=== PATIENT | male | born 1995 | race Caucasian/White ===

== ENCOUNTER 2021-02-18 17:49 | Emergency (ER) | payer SELFPAY ==
[2021-02-18] VITALS (7 sets, daily range): BP systolic 119–152; BP diastolic 69–70; PULSE 74–98; RESP 16; O2SAT 98–100
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
[2021-02-18 19:01] LABS: Abs Immature Grans 0.03 10^3/uL (0.0-0.06); Absolute Basophil Count 0.04 10^3/uL (0.0-0.2); Absolute Eosinophil Count 0.17 10^3/uL (0.0-0.7); Absolute Lymphocyte Count 1.79 10^3/uL (1.2-3.4); Absolute Monocyte Count 0.93 10^3/uL (0.1-0.8); Basophils % 0.4; Eosinophils % 1.5; HCT 42.7 % (40.0-50.0); HGB 14.6 g/dL (13.5-17.5); Immature Grans % 0.3; MCH 29.8 pg (27.0-33.0); MCHC 34.2 % (32.0-36.0); MCV 87.1 fL (80-95); Monocytes % 8.3; Neutrophils % 73.5; Nucleated RBC 0 %; Platelet Count 196 10^3/uL (130-400); RDW 11.5 % (11.8-14.1); WBC 11.19 10^3/uL (4.4-10.8)
[2021-02-18 19:03] LABS: Absolute Neutrophil Count 8.22 10^3/uL (1.2-6.7)
[2021-02-18 19:10] LABS: ALT 31 U/L (16-63); AST 28 U/L (15-37); Albumin 4.5 g/dL (3.4-5.0); Alkaline Phosphatase 81 U/L (46-116); Anion Gap 9.4 mmol/L (3-11); BUN 21 mg/dL (7-18); Bilirubin, Total 0.3 mg/dL (0.2-1.0); CO2 27.6 mmol/L (21.0-32.0); CREATININE 0.9 mg/dL (0.70-1.30); Calcium 9.2 mg/dL (8.5-10.1); Chloride 104 mmol/L (98-107); Glucose 80 mg/dL (74-106); Potassium 4.1 mmol/L (3.5-5.1); Sodium 141 mmol/L (136-145); Total Protein 7.7 g/dL (6.4-8.2)
[2021-02-18] MEDS: Lactated Ringers 1,000 ML 1000 ML IV (19:29)
[2021-02-18] MEDS: Omnipaque 350 MG/ML 100 ML BTL IJ (19:33)
[2021-02-18] MEDS: HYDROmorphone 2 MG/ML VIAL 0.5 MG IVP (19:33)
[2021-02-18] MEDS: Normal Saline Flush 10 ML SYR IVP (19:35)
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
== END 2021-02-18 20:47 | disposition home or self-care (01) ==
PROVIDERS: Emergency Medicine; Emergency Provider Student in an Organized Health Care Education/Training Program
DX: S42.012A Anterior displaced fracture of sternal end of left clavicle, initial encounter for closed fracture (principal); R07.82 Intercostal pain; V18.0XXA Pedal cycle driver injured in noncollision transport accident in nontraffic accident, initial encounter; Y93.55 Activity, bike riding
CPT/HCPCS: 23500; 36415; 74177; 80053; 96361; 96374; 99282; 70450; 71260; 72125; 85025; J3490